=== PATIENT | female | born 1960 | race Caucasian/White ===

== ENCOUNTER → 2018-02-24 | Outpatient (REF) | payer OTHER | LOC: M SFHCWAGY 10:08 | DX: Z12.4 Encounter for screening for malignant neoplasm of cervix (principal) | CPT/HCPCS: G0123 ==

== ENCOUNTER → 2018-02-24 | Outpatient (CLI) | payer OTHER | LOC: M WHC 08:59 | DX: Z12.31 Encounter for screening mammogram for malignant neoplasm of breast (principal) | CPT/HCPCS: 77067 ==

== ENCOUNTER → 2019-03-27 | Outpatient (REF) | payer OTHER ==
[~2019-03-27] MED LIST: ACET65TA; ATEN50TA2; BIRTH CONTROL PILL; IBUP800T; LOVE1INJ; VENL75TA2; ZITH250T
[2019-03-31 14:09] LABS: HPV HYBRID CAPTURE II Negative (Negative)
== END ==
LOC: M SFHCWAGY 11:25
PROVIDERS: ATTEND Nurse Practitioner Women's Health
DX: Z12.4 Encounter for screening for malignant neoplasm of cervix (principal)

== ENCOUNTER → 2019-07-30 | Outpatient (REF) | payer OTHER | LOC: M PLALAB 15:54 | PROVIDERS: ATTEND Nurse Practitioner Women's Health | DX: N95.0 Postmenopausal bleeding (principal) ==

== ENCOUNTER → 2020-06-27 | Outpatient (CLI) | payer BC ==
--- NOTE | 2020-06-27 11:54 | REP ---
INDICATION: N95.0 PMB COMPARISON: 07/16/2019 TECHNIQUE: Transabdominal pelvic ultrasound followed by transvaginal examination for better evaluation of the endometrium and adnexa. FINDINGS: Bladder is collapsed. Heterogeneous anteverted uterus measures 7.6 x 3.0 x 4.6 cm. The endometrial complex measures 3.2 mm thickness and a small 7 x 5 x 8 mm polyp in the lower uterine segment cannot definitively be excluded. Left ovary appears normal and measures 1.8 x 1.0 x 1.4 cm. Right ovary measures 2.2 x 1.5 x 1.5 cm and includes 8 mm echogenic focus which is nonspecific but raises the possibility of possible small dermoid. No pelvic fluid or adnexal mass lesion. IMPRESSION: 1. Possible 8 mm lower uterine segment endometrial polyp. 2. Small echogenic focus in the right ovary is nonspecific and likely incidental although small dermoid cannot be excluded. <Electronically signed by Kyle Chaudhari > 06/27/20 [id number]
== END ==
LOC: M WHC 10:25
PROVIDERS: ATTEND Obstetrics & Gynecology
DX: N95.0 Postmenopausal bleeding (principal)

== ENCOUNTER → 2020-10-05 | Outpatient (CLI) | payer BC, OTHER ==
[~2020-10-05] MED LIST changes: +ACYC400T PO; +ASPI81CH2 PO; +CETI-24 PO; +OMEP-221 PO; +PROG1CAP9 PO; +VENL37.598 PO; +VITA200028 PO; +ZINC1TAB2 PO
== END ==
LOC: M LABSMTC 08:48
PROVIDERS: ATTEND Anesthesiology
DX: Z01.812 Encounter for preprocedural laboratory examination (principal); Z20.822 Contact with and (suspected) exposure to COVID-19

== ENCOUNTER 2020-10-10 06:02 | Day surgery (SDC) | payer BC ==
[~2020-10-10] VITALS: Ht 162.6 cm; Wt 76.2 kg
--- OUTSIDE RECORDS SUMMARY | 2020-10-10 06:11 | CCD ---
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 Active 018033689 Problem Major depressive disorder, single episode, unspecified F32.9 Active 70641541 Problem Papanicolaou smear of cervix with positive high risk human papilloma virus (HPV) test R87.810 Active 992289614 Problem Family history of malignant neoplasm of digestive organs Z80.0 Active 136202428 Problem Acquired hyperlipoproteinemia E78.5 Active 37 77761 Problem Personal history of other venous thrombosis and embolism Z86.718 Active 155794606 Problem Other hyperlipidemia E78.4 Active 34813231 Problem Vitamin D deficiency, unspecified E55.9 Active 24283018 Problem Vaginal dryness N89.8 Active 27709673 Problem PMB (postmenopausal bleeding) N95.0 Active 76 141226 ALLERGIES Allergen (clinical drug ingredient) Drug/Non Drug Allergy do cumented on EMR Reaction Allergy Type Onset Date Status Estrogens Conjugated Pt has Hx blood clot Drug Allergy Active Shrimp Hives Non Drug Allergy Active clarithromycin Biaxin throat feels swollen Drug Allergy Active ENCOUNTERS from 1960 to 2020-08-20 Encounter Location Date Provider Diagnosis [facility] [address] [place] [address] Aug, Sarwat Almaraz Major depressive disorder, single episode, unspecified F32.9 IMMUNIZATIONS Vaccine Route Administration Date Status Influenza (6mo & up) Fluzone Unknown Aug 16, 2012 Adm inistered SOCIAL HISTORY Tobacco Use: Social History Observation Description Date Details (start date - stop date) Never Smoker Sex Assigned At : Social History Observation Description Sex Assigned At Unknown Audit Question Answer Notes Total Score: 4 Interpretation: Alcohol Education Language: Question Answer Notes Languages spoken: Other Sexual Hx: Question Answer Notes Had sex in the last 12 months (vaginal, oral, or anal)? Yes LMP: post menopause Have you ever had an STD? No Prevention Strategies discussed: Condoms with Men only Use protection? No Drug and Alcohol Question Answer Notes Total Score: 0 Interpretation: No problems reported Alcohol Screening: Question Answer Notes Did you have a drink containing alcohol in the past year? Ye s Points 4 Interpretation Positive How often did you have six or more drinks on one occas ion in the past year? Never (0 points) How many drinks did you have on a typica l day when you were drinking in the past year? 1 or 2 (0 points) How often did you have a drink containing alcohol in t he past year? Four or more times a week (4 points) BMI Care Goal Follow-Up Question Answer Notes Above Normal BMI Follow-Up Giving encouragement to exercise Tobacco Use: Question Answer Notes Are you a: never smoker REASON FOR REFERRAL No Information VITAL SIGNS No information MEDICATIONS Medication SIG (Take, Route, Frequency, Duration) Notes Start Da te End Date Status Acyclovir 400 MG 1 tablet Orally daily as needed for 90 days Active Zinc 100 MG 1 tablet Orally Once a day for 30 day(s) Active Omeprazole 40mg 40 mg 1 oral daily for 90 days Jul, 5 Active Omeprazole 40 MG TAKE ONE CAPSULE BY MOUTH EVERY DAY orally Daily for 90 Not-Taking Multivitamins otc 1 tab Orally occ. Active Ativan 1 mg 1 tablet at bedtime as neede d Orally twice daily as needed before flying for 3 doses Dec, Active Progesterone 200mg Daily Active Vitamin D 2000 UNIT 2 tab(s) Orally daily Active Venlafaxine HCl ER 37.5 MG 1 capsule with food Orally Once a day for 90 days Active PROCEDURES No Information RESULTS No Results REASON FOR VISIT venlafaxine hcl er 37.5 cap MEDICAL (GENERAL) HISTORY Type Description Date Medical History pulmonary embolism 03/13 (sec ondary to OCs); now on long-term ASA for secondary prevention Medical History hyperlipidemia Medical History GERD Medical History vitamin d deficiency Medical History depression/anxiety/ptsd? Medical History chronic ear problems/ent group Medical History herpes labialis Surgical History appendectomy Surgical History colonoscopy/EGD with Dr Jorge Yan 02/14 Surgical History ear surgery 12/23/11 Surgical History EMBX 07/30/19 Hospitalization History No Hospitalization history informati on Goals Section No Information Health Concerns No Information MEDICAL EQUIPMENT No Information MENTAL STATUS No Information FUNCTIONAL STATUS No Information ASSESSMENTS Encounter Date Diagnosis Assessment Notes Treatment Notes Treatm ent Clinical Notes Aug, Major depressive disorder, s elis episode, unspecified (ICD-10 - F32.9) PLAN OF TREATMENT Medication Medication Name Sig Start Date Stop Date Omeprazole 40mg 40 mg 1 oral daily for 90 days Jul, Acyclovir 400 MG 1 tablet Orally daily as needed for 90 days Venlafaxine HCl ER 37.5 MG 1 capsule with food Orally Once a day for 90 days Next Appt Details Provider Name:Kamila Jevon, 2021-04-03 10:40:00 AM, [facility] [place], [address], Insurance Providers Payer Name Payer Address Payer Phone Insured Name Patient Relati onship to Insured Coverage Start Date Coverage End Date BCBS [place] YAÑEZ PPO [phone] [facility] [employer] [facility] [place] [address] KRISTYN STARR self
--- OUTSIDE RECORDS SUMMARY | 2020-10-10 06:11 | CCD ---
Author Author [facility] Organization 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 Active 282787451 Problem Major depressive disorder, single episode, unspecified F32.9 Active 16067605 Problem Papanicolaou smear of cervix with positive high risk human papilloma virus (HPV) test R87.810 Active 775254595 Problem Family history of malignant neoplasm of digestive organs Z80.0 Active 102961299 Problem Acquired hyperlipoproteinemia E78.5 Active 37 97038 Problem Personal history of other venous thrombosis and embolism Z86.718 Active 257843176 Problem Other hyperlipidemia E78.4 Active 50338308 Problem Vitamin D deficiency, unspecified E55.9 Active 68479413 Problem Vaginal dryness N89.8 Active 21085213 Problem PMB (postmenopausal bleeding) N95.0 Active 76 248837 ALLERGIES Allergen (clinical drug ingredient) Drug/Non Drug Allergy do cumented on EMR Reaction Allergy Type Onset Date Status Estrogens Conjugated Pt has Hx blood clot Drug Allergy Active Shrimp Hives Non Drug Allergy Active clarithromycin Biaxin throat feels swollen Drug Allergy Active ENCOUNTERS from 1960 to 2020-08-09 Encounter Location Date Provider Diagnosis [facility] [address] [place] [address] Aug, Sarwat Almaraz Acquired hyperlipoproteinemia E78.5 ; Major depressive disorder, single episode, unspecified F32.9 ; Gastro-esophageal reflux disease without esophagitis K21.9 and Herpes simplex type 2 infection B00.9 IMMUNIZATIONS Vaccine Route Administration Date Status Influenza [...] REASON FOR REFERRAL No Information VITAL SIGNS Weight 163 lbs Aug, Height 64 in Aug, BMI 27.98 kg/m2 Aug, Heart Rate 84 /min Aug, Respiratory Rate 18 /min Aug, Temperature 97.1 degrees Fahrenheit Aug, Oximetry 99 Aug, Blood pressure systolic 122 mm Hg Aug, Blood pressure diastolic 74 mm Hg Aug, MEDICATIONS Medication SIG (Take, Route, Frequency, Duration) Notes Start Da te End Date Status Progesterone 200mg Daily Active Zinc 100 MG 1 tablet Orally Once a day for 30 day(s) Active Omeprazole 40 MG TAKE ONE CAPSULE BY MOUTH EVERY DAY orally Daily for 90 Not-Taking Vitamin D 2000 UNIT 2 tab(s) Orally daily Active Multivitamins otc 1 tab Orally occ. Active Acyclovir 400 MG 1 tablet Orally daily as needed for 90 days Active Venlafaxine HCl ER 37.5 MG 1 capsule with food Orally Once a day for 90 days Active Ativan 1 mg 1 tablet at bedtime as neede d Orally twice daily as needed before flying for 3 doses Dec, Active Omeprazole 40mg 40 mg 1 oral daily for 90 days Jul, 5 Active PROCEDURES No Information RESULTS No Results REASON FOR VISIT 1.5 year [id number], D&C scheduled saturday 08/11 MEDICAL (GENERAL) HISTORY Type Description Date Medical [...] Treatment Notes Treatm ent Clinical Notes Aug, Acquired hyperlipoproteinemia (ICD-10 - E78.5) Aug, Major depressive disorder, s elis episode, unspecified (ICD-10 - F32.9) Aug, Gastro-esophageal reflux dis ease without esophagitis (ICD-10 - K21.9) Aug, Herpes simplex type 2 infection (ICD-10 - B00.9) PLAN OF TREATMENT Medication Medication Name Sig Start Date Stop Date Acyclovir 400 MG 1 tablet Orally daily as needed for 90 days Venlafaxine HCl ER 37.5 MG 1 capsule with food Orally Once a day for 90 days Omeprazole 40mg 40 mg 1 oral daily for 90 days Jul, Future Test Test Name Order Date Comprehensive Metabolic Profile (CMP) [id number] LIPID PANEL (CARDIAC RISK) [id number] FREE T4 & TSH PANEL [id number] CBC - Complete Blood Count [id number] Next Appt Details 1 Year Reason: Provider Name:Kamila Escoto, 2021-04-03 10:40:00 AM, [address] [place], [address], Insurance Providers Payer Name Payer Address Payer Phone Insured Name Patient Relati onship to Insured Coverage Start Date Coverage End Date BCBS [place] PPO [phone] [facility] [place] [id number] KRISTYN STARR self
--- OUTSIDE RECORDS SUMMARY | 2020-10-10 06:12 | CCD ---
Author Author [facility] Organization [facility] Address Unknown Phone Unavailable Care Team Providers Care Resourcing Advisor Name Role Phone Dodard, Marlo DO Unavailable Unavailable Dodard, Marlo DO Unavailable Unavailable Dodard, Marlo DO Unavailable Unavailable Dodard, Marlo DO Unavailable Unavailable Dodard, Marlo DO Unavailable Unavailable Dodard, Marlo DO Unavailable Unavailable Dodard, Marlo DO Unavailable Unavailable Dodard, Marlo DO Unavailable Unavailable Dodard, Marlo DO Unavailable Unavailable Dodard, Marlo DO Unavailable Unavailable Dodard, Marlo DO Unavailable Unavailable Dodard, Marlo DO Unavailable Unavailable Dodard, Marlo DO Unavailable Unavailable Dodard, Marlo DO Unavailable Unavailable Dodard, Marlo DO Unavailable Unavailable Dodard, Marlo DO Unavailable Unavailable Dodard, Marlo DO Unavailable Unavailable Dodard, Marlo DO Unavailable Unavailable Dodard, Marlo DO Unavailable Unavailable Dodard, Marlo DO Unavailable Unavailable Dodard, Marlo DO Unavailable Unavailable Dodard, Marlo DO Unavailable Unavailable Dodard, Marlo DO Unavailable Unavailable Dodard, Marlo DO Unavailable Unavailable Dodard, Marlo DO Unavailable Unavailable Dodard, Marlo DO Unavailable Unavailable Dodard, Marlo DO Unavailable Unavailable Dodard, Marlo DO Unavailable Unavailable Dodard, Marlo DO Unavailable Unavailable Dodard, Marlo DO Unavailable Unavailable Dodard, Marlo DO Unavailable Unavailable Dodard, Marlo DO Unavailable Unavailable Dodard, Marlo DO Unavailable Unavailable Dodard, Marlo DO Unavailable Unavailable Dodard, Marlo DO Unavailable Unavailable Dodard, Marlo DO Unavailable Unavailable Dodard, Marlo DO Unavailable Unavailable Dodard, Marlo DO Unavailable Unavailable Dodard, Marlo DO Unavailable Unavailable Dodard, Marlo DO Unavailable Unavailable Dodard, Marlo DO Unavailable Unavailable Dodard, Marlo DO Unavailable Unavailable Dodard, Marlo DO Unavailable Unavailable Dodard, Marlo DO Unavailable Unavailable WetterhaIndra smith MD Unavailable Unavailable WetterhahnIndra MD Unavailable Unavailable WetterhahnIndra MD Unavailable Unavailable WetterhahnIndra MD Unavailable Unavailable Wetterhahn, Indra ELAM Unavailable Unavailable WetterhahnIndra MD Unavailable Unavailable WetterhahnIndra MD Unavailable Unavailable WetterhahnIndra MD Unavailable Unavailable WetterhahnIndra MD Unavailable Unavailable Wetterhahn, Indra ELAM Unavailable Unavailable Wetterhahn, Indra ELAM Unavailable Unavailable WetterhahnIndra MD Unavailable Unavailable WetterhahnIndra MD Unavailable Unavailable WetterhahnIndra MD Unavailable Unavailable WetterhahnIndra MD Unavailable Unavailable WetterhahnIndra MD Unavailable Unavailable WetterhahnIndra MD Unavailable Unavailable WetterhahnIndra MD Unavailable Unavailable WetterhahnIndra MD Unavailable Unavailable WetterhahnIndra MD Unavailable Unavailable WetterhahnIndra MD Unavailable Unavailable WetterhahnIndra MD Unavailable Unavailable WetterhahnIndra MD Unavailable Unavailable WetterhahnIndra MD Unavailable Unavailable WetterhahnIndra MD Unavailable Unavailable WetterhahnIndra MD Unavailable Unavailable WetterhahnIndra MD Unavailable Unavailable WetterhahnIndra MD Unavailable Unavailable WetterhahnInrda MD Unavailable Unavailable WetterhahnIndra MD Unavailable Unavailable WetterhahnIndra MD Unavailable Unavailable WetterhahnIndra MD Unavailable Unavailable WetterhahnIndra MD Unavailable Unavailable WetterhahnIndra MD Unavailable Unavailable WetterhahnIndra MD Unavailable Unavailable WetterhahnIndra MD Unavailable Unavailable WetterhahnIndra MD Unavailable Unavailable WetterhahnIndra MD Unavailable Unavailable WetterhahnIndra MD Unavailable Unavailable WetterhahnIndra MD Unavailable Unavailable WetterhahnIndra MD Unavailable Unavailable WetterhahnIndra MD Unavailable Unavailable WetterhahnIndra MD Unavailable Unavailable WetterhahnIndra MD Unavailable Unavailable WetterhahnIndra MD Unavailable Unavailable WetterhahnIndra MD Unavailable Unavailable Wetterhahn, Indra MD Unavailable Unavailable Wetterhahn, Indra MD Unavailable Unavailable Wetterhahn, Indra MD Unavailable Unavailable Wetterhahn, Indra MD Unavailable Unavailable Wetterhahn, Indra MD Unavailable Unavailable Wetterhahn, Indra MD Unavailable Unavailable Wetterhahn, Indra MD Unavailable Unavailable Wetterhahn, Indra MD Unavailable Unavailable Wetterhahn, Indra MD Unavailable Unavailable Wetterhahn, Indra MD Unavailable Unavailable Wetterhahn, Indra MD Unavailable Unavailable Wetterhahn, Indra MD Unavailable Unavailable Wetterhahn, Indra MD Unavailable Unavailable Wetterhahn, Indra MD Unavailable Unavailable Wetterhahn, Indra MD Unavailable Unavailable Wetterhahn, Indra MD Unavailable Unavailable Wetterhahn, Indra MD Unavailable Unavailable Wetterhahn, Indra MD Unavailable Unavailable Wetterhahn, Indra MD Unavailable Unavailable Wetterhahn, Indra MD Unavailable Unavailable Wetterhahn, Indra MD Unavailable Unavailable Wetterhahn, Indra MD Unavailable Unavailable Wetterhahn, Indra MD Unavailable Unavailable Wetterhahn, Indra MD Unavailable Unavailable Wetterhahn, Indra MD Unavailable Unavailable NO, PCP Unavailable Unavailable Re-disclosure Warning The records that you are about to access may contain information from federally-assisted alcohol or drug abuse programs. If such information is present, then the following federally mandated warning applies: This information has been disclosed to you from records protected by federal confidentiality rules (42 CFR part 2). The federal rules prohibit you from making any further disclosure of this information unless further disclosure is expressly permitted by the written consent of the person to whom it pertains or as otherwise permitted by 42 CFR part 2. A general authorization for the release of medical or other information is NOT sufficient for this purpose. The Federal rules restrict any use of the information to criminally investigate or prosecute any alcohol or drug abuse patient.The records that you are about to access may contain highly sensitive health information, the redisclosure of which is protected by Article 27-F of the [facility] Public Health law. If you continue you may have access to information: Regarding HIV / AIDS; Provided by facilities licensed or operated by the [facility] Office of Mental Health; or Provided by the [facility] Office for People With Developmental Disabilities. If such information is present, then the following [facility] mandated warning applies: This information has been disclosed to you from confidential records which are protected by state law. State law prohibits you from making any further disclosure of this information without the specific written consent of the person to whom it pertains, or as otherwise permitted by law. Any unauthorized further disclosure in violation of state law may result in a fine or long term sentence or both. A general authorization for the release of medical or other information is NOT sufficient authorization for further disc losure. Allergies and Adverse Reactions Type Description Substance Reaction Status Data Source(s ) No Known Drug Allergies No Known Drug Allergies [facility] Food allergy SHRIMP SHRIMP [facility] ENVIRONMENTAL TAPE TAPE RASH [facility] No Known Environmental Allergies No Known [facility] Encounter Providers Location Date Indications Data Source(s ) Unknown [address] [address] 08/20/2020 12:00:00 AM EST eCW1 ([facility]) Outpatient Attender: Marlo Harris DOConsultant: PCP NO 08/08/2020 07:19:46 AM EST - 08/11/2020 02:46:00 PM EST [facility] Patient discharged. Outpatient Attender: Marlo JARAMILLOonsultant: PCP NO 08/06/2020 10:51:00 AM EST - 08/06/2020 11:51:00 AM EST [facility] Patient discharged. [place]patient [address] [address] [address] 08/05/2020 12:00:00 AM EST eCW1 ([facility]) Outpatient Attender: Marlo JARAMILLOonsultant: PCP NO 07/25/2020 10:33:00 AM EST - 07/25/2020 11:33:00 AM EST [facility] Outpatient Attender: Marlo JARAMILLOonsultant: PCP NO 07/25/2020 07:02:35 AM [facility] Hospital Admission cancelled. Disregard status an d admitted date. Outpatient Attender: Marlo JARAMILLOonsultant: PCP NO 07/23/2020 08:58:00 AM EST - 07/23/2020 09:58:00 AM EST [facility] Patient discharged. Outpatient Attender: Marlo Martin nsultant: Indra Almaraz MDConsultant: PCP NO 07/22/2020 06:46:22 AM EST - 07/23/2020 03:50:00 PM EST [facility] Patient discharged. [place] [address] [address] 07/17/2020 12:00:00 AM EST eCW1 ([facility]) [place] [address] [address] 03/28/2020 12:00:00 AM EDT eCW1 ([facility]) [facility] [address] [address] 12/04/2019 12:00:00 AM EDT eCW1 ([facility]) Insurance Providers Payer name Policy type / Coverage type Policy ID Covered constitution party ID Covered constitution party's relationship to najera Policy Najera Plan Information [employer] [place] P[place]/307 [id number] SP [id number] [employer] [place] P[place]/307 [id number] SP [id number] [facility] [id number] SP [id number] BLUE CROSS BLUE SHIELD -O/P [id number] [employer] B [id number] S [id number] [employer] [place] PPO 302/307 [id number] SP [id number] [employer] B [id number] S [id number] [facility] O [id number] S [id number] ANSI-Not a Secondary Insurance [id number] ANSI-Not a Secondary Insurance [id number] ANSI-Not a Secondary Insurance [id number] ANSI-Not a Secondary Insurance [id number] ANSI-Not a Secondary Insurance [id number] [facility] HMO/PPO/POS [id number] [facility] [id number] SP [id number] [employer] [place] PPO 302/307 [id number] SP [id number] [facility] P [id number] S [id number] [facility] PHY [id number] SP [id number] [facility] P [id number] S [id number] [employer]BS P [id number] S [id number] [employer] [place] PPO 302/307 [id number] SP [id number] Problems, Conditions, and Diagnoses Code Display Name Description Problem Type Effective Dates Data Source(s) E78.5 [id number] Acquired hyperlipoproteinemia Problem 2019 12:00:00 AM EST eCW1 ([facility]) R87.810 [id number] Papanicolaou smear o f cervix with positive high risk human papilloma virus (HPV) test Problem 06/24/2020 12:00:00 AM EDT eCW1 ( [facility]) Z5329 Procedure and treatment not carried out because of patient's decision for other reasons Procedure and treatment not carried out because of patient's decision for other reasons Diagnosis 08/11/2020 11:00:00 AM [facility] N950 Postmenopausal bleeding Postmenopausal bleeding Diagno sis 08/11/2020 11:00:00 AM [facility] N951 Menopausal and female climacteric states Menopausal and female climacteric states Diagnosis 07/23/2020 08:58:00 AM [facility] N840 Polyp of corpus uteri Polyp of corpus uteri Diagnosis 07/23/2020 08:58:00 AM [facility] C66305 Encounter for other preprocedural examin ation Encounter for other preprocedural examination Diagnosis 07/23/2020 08:58:[address] [facility] Z1159 Encounter for screening for other viral diseases Encounter for screening for other viral diseases Diagnosis 07/23/2020 08:58:00 AM [facility] Results ID Date Data Source [id number] 10/05/2020 08:20:00 AM EST [facility] Name Value Range Interpretation Code Description Data Heidi rce(s) Supporting Document(s) SARS coronavirus 2 RNA Not Detected [facility] [place] This lab was ordered by [facility] and reported by [facility]. ID Date Data Source [id number] 08/06/2020 09:15:00 AM EST [facility] Name Value Range Interpretation Code Description Data Heidi rce(s) Supporting Document(s) SARS coronavirus 2 RNA [facility] This lab was ordered by [facility] Derek leary and reported by [facility]. ID Date Data Source [id number] 08/08/2020 06:47:00 AM [facility] Name Value Range Interpretation Code Description Data Heidi rce(s) Supporting Document(s) SARS-CoV-2, DONOVAN Not Detected Not Detected [facility] This nucleic acid amplification test was developed and its performancecharacteristics determined by [facility]. Nucleic acidamplification tests include PCR and TMA. This test has not been FDAcleared or approved. This test has been authorized by FDA under anEmergency Use Authorization (EUA). This test is only authorized forthe duration of time the declaration that circumstances existjustifying the authorization of the emergency use of in vitrodiagnostic tests for detection of SARS-CoV-2 virus and/or diagnosisof COVID-19 infection under section 564(b)(1) of the Act, 21 U.S.C.360bbb-3(b) (1), unless the authorization is terminated or revokedsooner.When diagnostic testing is negative, the possibility of a falsenegative result should be considered in the context of a patient'srecent exposures and the presence of clinical signs and symptomsconsistent with COVID- 19. An individual without symptoms of COVID-19and who is not shedding SARS-CoV-2 virus would expect to have anegative (not detected) result in this assay. ID Date Data Source [id number] 07/25/2020 12:57:00 PM EST [facility] Name Value Range Interpretation Code Description Data Heidi rce(s) Supporting Document(s) ABO group [Type] in Blood A [facility] Rh [Type] in Blood POSITIVE [facility] AB SCREEN NEGATIVE NORMAL: NEGATIVE [facility] { ABO/RH REENTER A POSITIVE{ AB SCREEN RE-ENTER NEGATIVE ID Date Data Source [id number] 07/25/2020 11:06:00 AM EST [facility] Name Value Range Interpretation Code Description Data [facility] rce(s) Supporting Document(s) CBC NO DIFF [facility] ital COMPLETE BLOOD COUNT Leukocytes [#/volume] in Blood by Automated count 8.5 10^3/uL 4.2 - 1 1.0 [facility] Erythrocytes [#/volume] in Blood by Automated count 4.91 10^6/uL 4. 20 - 5.40 [facility] Hemoglobin [Mass/volume] in Blood 15.2 g/dL 12.0 - 16.0 [facility] Hematocrit [Volume Fraction] of Blood by Automated count 45.1 % 3 7.0 - 47.0 [facility] Erythrocyte mean corpuscular volume [Entitic volume] by Auto mated count 91.9 fL 81.0 - 101 [facility] Erythrocyte mean corpuscular hemoglobin [Entitic mass] by Automated count 31.0 pg 27.0 - 34.0 [facility] Erythrocyte mean corpuscular hemoglobin concentration [Mass/volume] by Automated count 33.7 g/dL 31.0 - 36.0 [facility] Erythrocyte distribution width [Ratio] by Automated count 12.9 % 11.5 - 14.5 [facility] Platelets [#/volume] in Blood by Automated count 280 10^3/uL 150 - 45 0 [facility] Platelet mean volume [Entitic volume] in Blood by Automated count 9.1 fL 7.4 - 10.4 [facility] ID Date Data Source [id number] 07/23/2020 09:04:00 AM EST [facility] Name Value Range Interpretation Code Description Data Heidi rce(s) Supporting Document(s) SARS coronavirus 2 RNA [facility] This lab was ordered by [facility] and reported by [facility]. ID Date Data Source [id number] 07/25/2020 06:51:00 AM EST [facility] Name Value Range Interpretation Code Description Data Heidi rce(s) Supporting Document(s) SARS-CoV-2, DONOVAN Not Detected Not Detected [facility] This nucleic acid amplification test was developed and its performancecharacteristics determined by [facility]. Nucleic acidamplification tests include PCR and TMA. This test has not been FDAcleared or approved. This test has been authorized by FDA under anEmergency Use Authorization (EUA). This test is only authorized forthe duration of time the declaration that circumstances existjustifying the authorization of the emergency use of in vitrodiagnostic tests for detection of SARS-CoV-2 virus and/or diagnosisof COVID-19 infection under section 564(b)(1) of the Act, 21 U.S.C.360bbb-3(b) (1), unless the authorization is terminated or revokedsooner.When diagnostic testing is negative, the possibility of a falsenegative result should be considered in the context of a patient'srecent exposures and the presence of clinical signs and symptomsconsistent with COVID- 19. An individual without symptoms of COVID-19and who is not shedding SARS-CoV-2 virus would expect to have anegative (not detected) result in this assay. ID Date Data Source PAP REQUEST FOR SERVICE 06/10/2020 06:09:33 AM EDT eCW1 ([facility]) Name Value Range Interpretation Code Description Data Heidi rce(s) Supporting Document(s) PAP REQUEST FOR SERVICE eCW1 ( [facility]) Procedure Social History Code Duration Value Status Description Data Source(s ) Smoking 08/05/2020 12:00:00 AM EST Never Smoker completed Never S moker eCW1 ([facility]) Smoking 08/05/2020 12:00:00 AM EST Never Smoker completed Never S moker eCW1 ([facility]) Smoking 06/24/2020 12:00:00 AM EDT Never Smoker completed Never S nba eCW1 ([facility]) Smoking 03/28/2020 12:00:00 AM EDT Never Smoker completed Never Jorge nba eCW1 ([facility]) Vital Signs ID Date Data Source UNK Name Value Range Interpretation Code Description Data Source(s) Diastolic blood pressure 74 mm[Hg] 74 mm[Hg] eCW1 ([facility]) Systolic blood pressure 122 mm[Hg] 122 mm[Hg] e CW1 ([facility]) Body temperature 97.1 [degF] 97.1 [degF] eCW1 ( [facility]) Respiratory rate 18 /min 18 /min eCW1 ([facility]) Heart rate 84 /min 84 /min eCW1 ([facility] to [facility]) Body mass index (BMI) [Ratio] 27.98 kg/m2 27.98 kg/m2 eCW1 ([facility]) Body height 64 [in_i] 64 [in_i] eCW1 ([facility]) Body weight 163 [lb_av] 163 [lb_av] eCW1 ([facility]) Diastolic blood pressure 76 mm[Hg] 76 mm[Hg] eCW1 ([facility]) Systolic blood pressure 126 mm[Hg] 126 mm[Hg] e CW1 ([facility]) Body mass index (BMI) [Ratio] 26.77 kg/m2 26.77 kg/m2 eCW1 ([facility]) Body height 64 [in_i] 64 [in_i] eCW1 ([facility]) Body weight 156 [lb_av] 156 [lb_av] eCW1 ([facility]) ID Date Data Source [id number] 08/18/2020 05:50:23 AM EST [facility] Name Value Range Interpretation Code Description Data Source(s) WEIGHT RECORDED 160.00 pounds 160.00 pounds [facility] Height 64 Inches 064 Inches [facility]
--- OUTSIDE RECORDS SUMMARY | 2020-10-10 06:12 | CCD ---
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 Active 067372719 Problem PMB (postmenopausal bleeding) N95.0 Active 76 110287 Problem Personal history of other venous thrombosis and embolism Z86.718 Active 572875330 Problem Papanicolaou smear of cervix with positive high risk human papilloma virus (HPV) test R87.810 Active 174690596 Problem Major depressive disorder, single episode, unspecified F32.9 Active 57332755 Problem Other hyperlipidemia E78.4 Active 33863556 Problem Vitamin D deficiency, unspecified E55.9 Active 50279125 Problem Vaginal dryness N89.8 Active 54503828 ALLERGIES Allergen (clinical drug ingredient) Drug/Non Drug Allergy do cumented on EMR Reaction Allergy Type Onset Date Status Estrogens Conjugated Pt has Hx blood clot Drug Allergy Active Shrimp Hives Non Drug Allergy Active clarithromycin Biaxin throat feels swollen Drug Allergy Active ENCOUNTERS from 1960 to 2020-07-17 Encounter Location Date Provider Diagnosis [facility] [place] [address] [place] [address] 12 Jul, 2020 Sarwat Almaraz IMMUNIZATIONS Vaccine Route Administration Date Status Influenza [...] MEDICATIONS Medication SIG (Take, Route, Frequency, Duration) Start Date En d Date Status Omeprazole 40mg 40 mg 1 oral daily for 90 day(s) Jul, Active Acyclovir 400 MG 1 tablet Orally daily as needed for 30 Active Ativan 1 mg 1 tablet at bedtime as neede d Orally twice daily as needed before flying for 3 doses Dec, Active Omeprazole 40 MG TAKE ONE CAPSULE BY MOUTH EVERY DAY orally Daily f or 90 Not-Taking Vitamin D 2000 UNIT 2 tab(s) Orally daily Active Zinc 100 MG 1 tablet Orally Once a day for 30 day(s) Active Venlafaxine HCl ER 37.5 MG 1 capsule with food Orally Once a day for 30 Days Active Multivitamins otc 1 tab Orally occ. Activ e PROCEDURES No Information RESULTS No Results REASON FOR VISIT effexor MEDICAL (GENERAL) HISTORY Type Description Date Medical [...] No Information FUNCTIONAL STATUS No Information ASSESSMENTS No Information PLAN OF TREATMENT Medication Medication Name Sig Start Date Stop Date Venlafaxine HCl ER 37.5 MG 1 capsule with food Orally Once a day for 30 Days Next Appt Details Provider Name:Indra Almaraz, 2020-08 08:30:00 AM, [address], [place], [address], Provider Name:Kamila Escoto, 2021-04-03 10:40:00 AM, [address] [place], [address], Insurance Providers Payer Name Payer Address Payer Phone Insured Name Patient Relati onship to Insured Coverage Start Date Coverage End Date [id number] [facility] [place] [id number] KRISTYN STARR self
[2020-10-10 06:36] LABS: HEMATOCRIT 42.1 % (36.0-47.0); HEMOGLOBIN 13.9 g/dl (12.0-15.5); MEAN CORPUSCULAR HEMOGLOBIN 29.9 pg (27.0-33.0); MEAN CORPUSCULAR VOLUME 90.5 fl (80.0-96.0); PLATELET COUNT, AUTOMATED 242 10^3/uL (150-450); RED BLOOD COUNT 4.65 10^6/uL (4.00-5.40); WHITE BLOOD COUNT 7.9 10^3/uL (4.0-10.0)
[2020-10-10] MEDS ORDERED: fentaNYL 100 MCG/2 ML INJECTION (J3010) As Ordered ONE (07:09)
[2020-10-10] MEDS ORDERED: MIDAZOLAM INJ 2MG/2ML VIAL (J2250 PER 1MG) As Ordered ONE (07:09)
[2020-10-10] MEDS ORDERED: LIDOCAINE 2% 100MG/5ML SDV (FOR ANES.) As Ordered ONE ×2 (07:11→07:12)
[2020-10-10] MEDS ORDERED: dexameTHASONE 4 MG/ML 1ML VIAL (J1100 PER 1MG) As Ordered ONE (07:12)
[2020-10-10] MEDS ORDERED: ONDANSETRON 4MG/2ML VIAL As Ordered ONE (07:12)
[2020-10-10] MEDS ORDERED: propofoL 200 MG/20 ML VIAL As Ordered ONE (07:12)
[2020-10-10] MEDS ORDERED: KETOROLAC 60MG 2ML VIAL As Ordered ONE (07:17)
[2020-10-10] MEDS ORDERED: ACETAMINOPHEN 1000MG 100ML IV BTL (OFIRMEV) (J0131 PER 10MG) As Ordered ONE (07:18)
[2020-10-10] MEDS ORDERED: fentaNYL 100 MCG/2 ML INJECTION (J3010) IV PRN (08:30)
[2020-10-10] MEDS ORDERED: METOCLOPRAMIDE INJ 10MG/2ML VIAL (J2765 PER 1) IV PRN (08:30)
[2020-10-10] MEDS ORDERED: LR 1,000 ML IV SCH (08:30)
[2020-10-10] MEDS ORDERED: ONDANSETRON 4MG/2ML VIAL IV PRN (08:30)
[2020-10-10] MEDS ORDERED: PERCOCET 5MG/325MG TAB PO PRN ×2 (08:30)
[2020-10-10 09:20] VITALS: BP 137/69
--- NOTE | 2020-10-10 12:40 | RO ---
OPERATIVE NOTE DATE OF OPERATION: 10/10/2020 PREOPERATIVE DIAGNOSES: 1. Postmenopausal bleeding. 2. Endometrial polyp on ultrasound. POSTOPERATIVE DIAGNOSES: 1. Postmenopausal bleeding. 2. Endometrial polyp on ultrasound. PROCEDURES: 1. Dilation and curettage (D&C). 2. Hysteroscopy. 3. Polypectomy. SURGEON: Marlo Harris D.O. GRID OPERATOR: None. ANESTHESIA: General. COMPLICATIONS: None. ESTIMATED BLOOD LOSS: Less than 10 mL. SPECIMENS SENT TO LAB: Endometrial curetting and possible polyp tissue. INDICATIONS FOR PROCEDURE: Tiara is a 59-year-old female with postmenopausal bleeding and endometrial polyp. After extensive counseling in the office, the decision was made to proceed with a D&C, hysteroscopy, and possible polypectomy. DESCRIPTION OF PROCEDURE: After obtaining informed consent, the patient was taken to the operating room where general anesthetic was found to be adequate. She was then draped and prepped in the usual sterile fashion in the dorsolithotomy position. She was then draped and prepped in the usual sterile fashion and the straight catheter bladder was performed for approximately 50 mL of clear urine. We then placed a weighted speculum in the posterior fornix of the vagina using a Payan retractor and the anterior lip of the cervix was then grasped with a single-tooth tenaculum, the uterus was sound to approximately 7 cm in size. The cervix was then serially dilated. The hysteroscope was inserted. Normal endometrial cavity noted with questionable polyp tissue in the posterior wall of the uterus. At this point, the hysteroscope was removed. The polypoid area was removed and a sharp curettage of the endometrial lining was then done. The tissues were sent to pathology for final diagnosis. Good hemostasis noted. The patient tolerated the procedure well. She was then transferred to the recovery room in stable condition.
[2020-10-10] MEDS ORDERED: IBUPROFEN 800 MG TAB PO SCH (14:00)
== END 2020-10-10 09:39 | disposition home or self-care (01) ==
LOC: M SDC 06:02
PROVIDERS: ATTEND Obstetrics & Gynecology
DX: N95.0 Postmenopausal bleeding (principal); N84.0 Polyp of corpus uteri; K21.9 Gastro-esophageal reflux disease without esophagitis; Z87.891 Personal history of nicotine dependence; Z86.711 Personal history of pulmonary embolism; Z79.899 Other long term (current) drug therapy; F43.10 Post-traumatic stress disorder, unspecified; F32.9 Major depressive disorder, single episode, unspecified; F41.9 Anxiety disorder, unspecified; Z88.2 Allergy status to sulfonamides
CPT/HCPCS: 36415; 58558; 85027; 86850; 86900; 86901; 88305; J0131; J1100; J1885; J2250; J2405; J3010

== ENCOUNTER → 2021-04-03 | Outpatient (CLI) | payer BC ==
[~2021-04-03] MED LIST changes: +ACYC1TAB PO; -ACYC400T PO
--- NOTE | 2021-04-03 12:35 | REPMRS ---
Patient History The patient states she had a clinical breast exam in March 2021. Family history of colorectal cancer at age 50 or over in father, unknown cancer in paternal grandmother. Taking estrogen for 1 year 6 months. Taking progesterone for 1 year 6 months. Taking unspecified hormones for 1 year 6 months. Patient states no breast complaints today. Patient has signed MRS History Sheet. Digital Woman Screen Mammo: April 03, 2021 - Exam #: [id number] Bilateral CC and MLO view(s) were taken. Technologist: Jeannette Georges, Technologist Prior study comparison: March 28, 2020, bilateral digital woman screen mammo performed at [facility]. March 27, 2019, bilateral digital woman screen mammo performed at [facility]. FINDINGS: There are scattered fibroglandular densities. Screening. Digital screening (2D) mammography was performed bilaterally in the CC and MLO projections. Additionally, breast tomosynthesis (3D mammography) was performed bilaterally in the CC and MLO projections. Todays exam was compared to the prior exam/exams. By history, the patient has no complaints of a palpable breast abnormality or other significant breast complaints. The breasts are unchanged in size and shape. There are no melonie-soft tissue densities or spiculated masses. There is no internal architectural distortion. There are no suspicious melonie-calcific clusters. Skin thickening or nipple retraction is not present. IMPRESSION: BI-RADS Category 2- Benign Findings. There is no evidence of malignant alteration of the breasts. Followup examination recommended in one year. The Volpara volumetric breast density category is B, there are scattered areas of fibroglandular densities. This mammogram was read with the assistance of [facility],an FDA approved computer aided detection system for mammography. The lifetime Tyrer-Cuzick score is 7.7 % Negative x-ray reports should not delay surgical consultation if a dominant or clinically suspicious mass is present. Not all breast cancers can be identified by mammography. Therefore, we recommend that you continue to perform regular breast self-examination and physical examination and then promptly contact your physician of any concerns or changes. Adenosis and dense breasts may obscure an underlying neoplasm. Assessment: BI-RADS/ACR category 2 mammogram. Benign Findings. Recommendation Routine screening mammogram of both breasts in 1 year. Electronically Signed By: Robert Rivera DO 04/03/21 [id number]
== END ==
LOC: M WHC 10:49
PROVIDERS: ATTEND Advanced Practice Midwife
DX: Z12.31 Encounter for screening mammogram for malignant neoplasm of breast (principal)

== ENCOUNTER → 2021-06-05 | Outpatient (CLI) | payer BC ==
--- NOTE | 2021-06-05 12:38 | DEXAMM ---
INDICATION: [facility] SCREEN FOR OSTEOPOROSIS. COMPARISON: None. TECHNIQUE: Bone density was measured using dual-energy x-ray absorptionmetry (DEXA). FINDINGS: AP SPINE L1-L4 BMD 1.077 g/cm2 Young Adult T-Score -0.9 Age Matched Z-Score 0.3. LT FEMUR, TOTAL BMD 0.928 g/cm2 Young Adult T-Score -0.6 Age Matched Z-Score 0.3. LT NECK BMD 0.872 g/cm2 Young Adult T-Score -1.2 Age Matched Z-Score 0.1. RT FEMUR, TOTAL BMD 0.926 g/cm2 Young Adult T-Score -0.7 Age Matched Z-Score 0.3. RT NECK BMD 0.908 g/cm2 Young Adult T-Score -0.9 Age Matched Z-Score 0.3. IMPRESSION: There is normal bone density of the spine. There is low bone density of the left hip. There is normal bone density of the right hip. FOLLOW-UP: Recommendation for the next bone density exam: 2-5 years.. <Electronically signed by Star Valencia > 06/05/21 1230
== END ==
LOC: M WHC 10:27
PROVIDERS: ATTEND Advanced Practice Midwife
DX: Z13.820 Encounter for screening for osteoporosis (principal); M85.852 Other specified disorders of bone density and structure, left thigh

== ENCOUNTER → 2022-03-12 | Outpatient (REF) | payer OTHER ==
[~2022-03-12] MED LIST changes: -OMEP-221 PO; +OMEP40CA5 PO
[2022-03-12 12:55] LABS: HEMATOCRIT 46.5 % (36.0-47.0); HEMOGLOBIN 15.5 g/dl (12.0-15.5); MEAN CORPUSCULAR HEMOGLOBIN 30.8 pg (27.0-33.0); MEAN CORPUSCULAR HGB CONC 33.3 g/dl (32.0-36.5); MEAN CORPUSCULAR VOLUME 92.3 fl (80.0-96.0); PLATELET COUNT, AUTOMATED 260 10^3/uL (150-450); RED BLOOD COUNT 5.04 10^6/uL (4.00-5.40); WHITE BLOOD COUNT 7.2 10^3/uL (4.0-10.0)
[2022-03-12 13:32] LABS: ALBUMIN 4.4 GM/DL (3.2-5.2); ALT/SGPT 33 U/L (12-78); BILIRUBIN,TOTAL 0.8 MG/DL (0.2-1.0); BLOOD UREA NITROGEN 14 MG/DL (7-18); CALCIUM LEVEL 9.6 MG/DL (8.8-10.2); CARBON DIOXIDE LEVEL 29 MEQ/L (21-32); CHLORIDE LEVEL 102 MEQ/L (98-107); CHOLESTEROL LEVEL 313 MG/DL (<200); CREATININE FOR GFR 0.94 MG/DL (0.55-1.30); FREE T4 1.12 NG/DL (0.76-1.46); GLOMERULAR FILTRATION RATE > 60.0 (>45); GLUCOSE, FASTING 92 MG/DL (70-100); HDL CHOLESTEROL 64 MG/DL (>40); LDL CHOLESTEROL 191 MG/DL (<100); NON-HDL-C 249 MG/DL; POTASSIUM SERUM 4.1 MEQ/L (3.5-5.1); SODIUM LEVEL 135 MEQ/L (136-145); TOTAL PROTEIN 7.8 GM/DL (6.4-8.2); TRIGLYCERIDES LEVEL 290 MG/DL (<150)
== END ==
LOC: M SFHCADAM 10:19
PROVIDERS: ATTEND Family Medicine
DX: F32.9 Major depressive disorder, single episode, unspecified (principal); E78.5 Hyperlipidemia, unspecified

== ENCOUNTER → 2022-06-28 | Outpatient (REF) | payer OTHER ==
[2022-06-28 13:58] LABS: CHOLESTEROL RISK RATIO 5.215 (<5)
== END ==
LOC: M SFHCADAM 08:22
PROVIDERS: ATTEND Family Medicine
DX: E78.5 Hyperlipidemia, unspecified (principal)

== ENCOUNTER → 2022-10-14 | Outpatient (CLI) | payer OTHER | LOC: M SLEEP HO 09:15 | PROVIDERS: ATTEND Nurse Practitioner Family | DX: R06.83 Snoring (principal) ==

== ENCOUNTER → 2022-11-18 | Outpatient (CLI) | payer OTHER | LOC: M ADAMS 07:52 | PROVIDERS: ATTEND Physician Assistant | DX: J20.9 Acute bronchitis, unspecified (principal) ==

== ENCOUNTER → 2022-12-29 | Outpatient (REF) | payer OTHER ==
[2022-12-29 13:24] LABS: CHOLESTEROL RISK RATIO 4.49 (<5); HDL CHOLESTEROL 60.7 MG/DL (>40); LDL CHOLESTEROL 161.5 MG/DL (<100); NON-HDL-C 212.3 MG/DL
== END ==
LOC: M SFHCADAM 07:27
PROVIDERS: ATTEND Family Medicine
DX: G47.33 Obstructive sleep apnea (adult) (pediatric) (principal); E78.5 Hyperlipidemia, unspecified

== ENCOUNTER → 2022-12-31 | Outpatient (REF) | payer OTHER | LOC: M SFHCADAM 09:06 | PROVIDERS: ATTEND Family Medicine | DX: Z53.9 Procedure and treatment not carried out, unspecified reason (principal) ==

== ENCOUNTER → 2024-03-06 | Outpatient (CLI) | payer OTHER | LOC: M WHC 08:51 | PROVIDERS: ATTEND Obstetrics & Gynecology | DX: Z12.31 Encounter for screening mammogram for malignant neoplasm of breast (principal); M81.0 Age-related osteoporosis without current pathological fracture ==

== ENCOUNTER → 2024-04-24 | Outpatient (REF) | payer OTHER ==
[2024-04-24 12:54] LABS: HEMATOCRIT 42.7 % (36.0-47.0); HEMOGLOBIN 14.1 g/dl (12.0-15.5); MEAN CORPUSCULAR HEMOGLOBIN 29.5 pg (27.0-33.0); MEAN CORPUSCULAR VOLUME 89.3 fl (80.0-96.0); PLATELET COUNT, AUTOMATED 239 10^3/uL (150-450); RED BLOOD COUNT 4.78 10^6/uL (4.00-5.40); WHITE BLOOD COUNT 6.6 10^3/uL (4.0-10.0)
[2024-04-24 12:56] LABS: ALBUMIN 4.1 G/DL (3.2-5.2); ALKALINE PHOSPHATASE 105 U/L (46-116); ALT/SGPT 48 U/L (7.0-40); AST/SGOT 28 U/L (<34); BILIRUBIN,TOTAL 0.5 MG/DL (0.3-1.2); BLOOD UREA NITROGEN 13 MG/DL (9-23); CALCIUM LEVEL 9.4 MG/DL (8.3-10.6); CARBON DIOXIDE LEVEL 29 MMOL/L (20-31); CHLORIDE LEVEL 107 MMOL/L (98-107); CHOLESTEROL LEVEL 200 MG/DL (<200); CHOLESTEROL RISK RATIO 3.51 (<5); CREATININE FOR GFR 0.86 MG/DL (0.55-1.30); GLOMERULAR FILTRATION RATE > 60.0 (>45); GLUCOSE, FASTING 99 MG/DL (74-106); HDL CHOLESTEROL 56.9 MG/DL (>40); LDL CHOLESTEROL 102.3 MG/DL (<100); NON-HDL-C 143.1 MG/DL; POTASSIUM SERUM 4.3 MMOL/L (3.5-5.1); SODIUM LEVEL 139 MMOL/L (136-145); TOTAL PROTEIN 6.9 G/DL (5.7-8.2); TRIGLYCERIDES LEVEL 204 MG/DL (<150)
[2024-04-24 12:59] LABS: FREE T4 1.36 NG/DL (0.89-1.76); THYROID STIMULATING HORMONE 2.061 uIU/ML (0.55-4.78)
[2024-04-24 14:15] LABS: HEMOGLOBIN A1c 5.6 % (4.0-6.0)
== END ==
LOC: M SFHCADAM 08:37
PROVIDERS: ATTEND Family Medicine
DX: I10 Essential (primary) hypertension (principal); E78.5 Hyperlipidemia, unspecified; G47.33 Obstructive sleep apnea (adult) (pediatric); Z13.1 Encounter for screening for diabetes mellitus

== ENCOUNTER → 2024-11-23 | Outpatient (CLI) | payer OTHER ==
[2024-11-23 13:35] LABS: APPEARANCE, URINE CLEAR (CLEAR); BACTERIA, URINE AUTO NEGATIVE (NEGATIVE); BILIRUBIN, URINE AUTO NEGATIVE (NEGATIVE); BLOOD, URINE BLOOD NEGATIVE (NEGATIVE); COLOR, URINE STRAW (YELLOW); GLUCOSE, URINE (UA) AUTO NEGATIVE (NEGATIVE); KETONE, URINE AUTO NEGATIVE (NEGATIVE); LEUKOCYTE ESTERASE, URINE AUTO NEGATIVE (NEGATIVE); NITRITE, URINE AUTO NEGATIVE (NEGATIVE); PROTEIN, URINE AUTO NEGATIVE (NEGATIVE); RBC, URINE AUTO 0 /HPF (0-3); SPECIFIC GRAVITY URINE AUTO 1.003 (1.002-1.035); SQUAMOUS EPITHELIAL CELL UR AU 1 /HPF (0-6); UROBILINOGEN, URINE AUTO 0.2 mg/dL (0.0-2.0); WBC, URINE AUTO 1 /HPF (0-3)
== END ==
LOC: M PLAIMG 11:16
PROVIDERS: ATTEND Nurse Practitioner Family
DX: R10.30 Lower abdominal pain, unspecified (principal); R39.9 Unspecified symptoms and signs involving the genitourinary system

== ENCOUNTER → 2024-12-25 | Outpatient (CLI) | payer OTHER | LOC: M RAD 08:16 | PROVIDERS: ATTEND Family Medicine | DX: R74.01 Elevation of levels of liver transaminase levels (principal) ==

== ENCOUNTER → 2025-04-18 | Outpatient (CLI) | payer OTHER ==
[~2025-04-18] MED LIST changes: +ACYC-438 PO; -ACYC1TAB PO
[2025-04-18 11:22] LABS: PLATELET COUNT, AUTOMATED 281 10^3/uL (150-450)
[2025-04-18 11:55] LABS: ESTIMATED AVERAGE GLUCOSE 111.0 MG/DL (60-110)
[2025-04-18 12:01] LABS: ALT/SGPT 38.0 U/L (7.0-40); AST/SGOT 27.0 U/L (<34); CALCIUM LEVEL 9.5 MG/DL (8.3-10.6); CARBON DIOXIDE LEVEL 30.0 MMOL/L (20-31); CHLORIDE LEVEL 102.0 MMOL/L (98-107); CHOLESTEROL LEVEL 161.0 MG/DL (<200); CHOLESTEROL RISK RATIO 3.44 (<5); CREATININE FOR GFR 0.89 MG/DL (0.55-1.30); GLOMERULAR FILTRATION RATE 72.4 (>45); LDL CHOLESTEROL 92.4 MG/DL (<100); NON-HDL-C 114.2 MG/DL; POTASSIUM SERUM 4.6 MMOL/L (3.5-5.1); SODIUM LEVEL 141.0 MMOL/L (136-145); TRIGLYCERIDES LEVEL 109.0 MG/DL (<150)
[2025-04-18 12:03] LABS: FREE T4 1.49 NG/DL (0.89-1.76)
== END ==
LOC: M PLALAB 08:32
PROVIDERS: ATTEND Family Medicine
DX: I11.9 Hypertensive heart disease without heart failure (principal); E78.5 Hyperlipidemia, unspecified; Z13.1 Encounter for screening for diabetes mellitus; K76.0 Fatty (change of) liver, not elsewhere classified; G47.33 Obstructive sleep apnea (adult) (pediatric)